=== PATIENT | female | born 1995 | race Caucasian/White ===

== ENCOUNTER 2022-10-26 12:06 | Outpatient (CLI) | payer OTHER, MEDICAID ==
[2022-10-26] VITALS (16 sets, daily range): BP systolic 112–140; BP diastolic 72–93
== END 2022-10-26 23:59 | disposition home or self-care (01) ==
LOC: CARD DIAG 12:06
PROVIDERS: ATTEND Internal Medicine Interventional Cardiology
DX: R42 Dizziness and giddiness (principal); R55 Syncope and collapse; R11.0 Nausea
CPT/HCPCS: 93660